=== PATIENT | female | born 1955 | race Caucasian/White ===

== ENCOUNTER 2020-04-05 11:24 | Emergency (ER) | payer OTHER ==
--- NOTE | 2020-04-05 12:34 | ERPHSYRPT ---
- History of Present Illness Patient Subjective Stated Complaint: " I have felt weak all over. My blood pressure and oxygen was low this morning. I have had a cold and I feel short of breath. I had a televisit this morning and they advised I come to hospital. Come of my family was positive for Covid and they stayed at my house a couple weeks ago". Triage Nursing Assessment: Pt presents to ER with complaints of shortness of breath and weakness all over. Pt does have dimished lung sounds throughout and wheezes noted. States has had productive cough and cold for the past couple of days. States feels weak all over. 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 Pt denies headache, dizziness, or pain. Pt denies nausea/vomiting/diarrhea. Pt does states she had "upset stomach" a couple days ago. Pt skin is pale, warm, and dry. Pt is alert and oriented x 3. Pt able to ambulate with slow gait. Pt states recent exposure to Covid-19. Physician History: 65 yo wf w cc of decreased BP and low sats x 1 wk. Pt also complains of DUE. Sats/BP wnl upon presentation. Pt denies chest p ain/fever/cough/N/V/D/Melena/hematochezia/dysuria/hematuria. Timing/Duration: week(s) (1wk) Activities at Onset: none Severity of Dyspnea-Max: mild Severity of Dyspnea-Current: mild Possible Cause: no prior episodes Modifying Factors: Improves With: activity Associated Symptoms: No chest pain/discomfort, No edema, No fever, No insomnia, No loss of appetite, No lightheadedness, No wheezing, No weakness, No ankle swelling, No chills, No hemoptysis, No calf pain, No dizziness, No heaviness, No heart racing, No lightheadedness, No leg swelling, No muscle spasms feet, No muscle spasms hands, No painful breathing, No productive cough, No sweating, No tightness, No tingling face Allergies/Adverse Reactions: No Known Drug Allergies Allergy (Verified 04/05/20 11:42) Home Medications: Nebivolol HCl [Bystolic] 5 mg PO DAILY 05/04/15 [History] Omeprazole 40 mg PO DAILY 05/04/15 [History] Rosuvastatin Calcium [Crestor] 20 mg PO DAILY 05/04/15 [History] Anastrozole [Arimidex] 1 mg PO DAILY 03/30/16 [History] Duloxetine HCl [Cymbalta] 60 mg DAILY 03/30/16 [History] Bumetanide 1 mg PO BID 04/05/20 [History] Cyanocobalamin (Vitamin B-12) [B-12] 1,000 mcg PO DAILY 04/05/20 [History] Losartan Potassium 50 mg [Cozaar 50 MG] 50 mg PO DAILY 04/05/20 [History] Metformin HCl 500 mg PO BID 04/05/20 [History] Vit A/Vit C/Vit E/Zinc/Copper [Preservision Areds Tablet] 2 each PO BID 04/05/20 [History] allopurinoL [Allopurinol] 300 mg PO DAILY 04/05/20 [History] Hx Tetanus, Diphtheria Vaccination/Date Given: Yes Hx Influenza Vaccination/Date Given: Yes Hx Pneumococcal Vaccination/Date Given: Yes Immunizations Up to Date: Yes Travel Risk - International Travel Have you traveled outside of the country in past 3 weeks: No - Coronavirus Screening Are you exhibiting any of the following symptoms?: No Close contact with a COVID-19 positive Pt in past 14-21 Days: Yes - Review of Systems Constitutional: No Symptoms Eyes: No Symptoms Ears, Nose, & Throat: No Symptoms Respiratory: Dyspnea, Dyspnea on Exertion (GILLESPIE), No Cough, No Cyanosis, No Stridor, No Wheezing Cardiac: No Symptoms Abdominal/Gastrointestinal: No Symptoms Musculoskeletal: No Symptoms Skin: No Symptoms Neurological: No Symptoms Psychological: No Symptoms Endocrine: No Symptoms Hematologic/Lymphatic: No Symptoms Immunological/Allergic: No Symptoms - Past Medical History Pertinent Past Medical History: Yes Neurological History: No Pertinent History ENT History: No Pertinent History Cardiac History: Hypertension, Other Respiratory History: Sleep Apnea Endocrine Medical History: No Pertinent History Musculoskeletal History: Degenerative Disk Disease, Osteoarthritis GI Medical History: GERD History: No Pertinent History Psycho-Social History: No Pertinent History Female Reproductive Disorders: Breast Cancer Other Medical History: "leaky" heart valve, breast ca,with lumpectomy 2016, fatty liver - Past Surgical History Past Surgical History: Yes Neuro Surgical History: No Pertinent History Cardiac: Cardiac Catheterization Respiratory: No Pertinent History Gastrointestinal: No Pertinent History Genitourinary: No Pertinent History Musculoskeletal: No Pertinent History Female Surgical History: Tubal Ligation Other Surgical History: breast bx--dx with cancer days ago--has appt with dr mullen today,lumpectomy 2016 - Social History Smoking Status: Never smoker Exposure to second hand smoke: No Drug Use: none Patient Lives Alone: No Significant Family History: no pertinent family hx - Nursing Vital Signs Nursing Vital Signs: Initial Vital Signs Temperature 97.7 F 04/05/20 11:35 Pulse Rate 70 04/05/20 11:35 Respiratory Rate 22 04/05/20 11:35 Blood Pressure 132/78 04/05/20 11:35 O2 Sat by Pulse Oximetry 96 04/05/20 11:35 Pain Scale Pain Intensity 0 - Physical Exam General Appearance: no apparent distress Eye Exam: PERRL/EOMI, eyes nml inspection Ears, Nose, Throat Exam: hearing grossly normal, normal ENT inspection, normal pharynx Neck Exam: normal inspection, non-tender, supple, full range of motion, No Brudzinski, No Kernig's, No meningismus, No carotid bruit Respiratory Exam: crackles/rales (Rales R base) Cardiovascular/Chest Exam: normal heart sounds, murmur (2/6 LA[place]ENCE) Abdominal/Gastrointestinal Exam: soft, normal bowel sounds, No tenderness Extremity Exam: non-tender, normal range of motion, normal inspection Peripheral Pulses Exam: carotid (R): 2+, carotid (L): 2+ Neurologic Exam: alert, oriented x 3, 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, 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, normal mood/affect, nml cerebellar function, sensation nml, No motor deficits, No sensory deficit Skin Exam: normal color, warm, dry, No rash Lymphatic Exam: No adenopathy SpO2 Interpretation: normal SpO2: 96 O2 Delivery: Room Air - Course Nursing assessment & vital signs reviewed: Yes EKG Interpreted by Me: RATE (NSR/R67/Normal QT-QTc/IVCD/Flat Twaves) - CT Exams Chest CT Interpretation: Discussed w/radiologist (CTA chest-patchy B groundglass airspace opacities/L breast mass) Ordered Tests: Active Orders 24 hr Category Date Time Status EKG-ER Only STAT Care 04/05/20 12:07 Completed CHEST WITH CONTRAST [CT] Stat Exams 04/05/20 13:19 Completed CBC W DIFF Stat Lab 04/05/20 12:34 Completed CMP Stat Lab 04/05/20 12:27 Completed D-DIMER QUANTITATIVE Stat Lab 04/05/20 12:27 Completed PROTIME WITH INR Stat Lab 04/05/20 12:27 Completed PTT Stat Lab 04/05/20 12:27 Completed TROPONIN Q3H Lab 04/05/20 12:15 Completed Medication Summary Discontinued Medications Generic Name Dose Route Start Last Admin Trade Name Freq PRN Reason Stop Dose Admin Dexamethasone Sodium Phosphate 10 mg 04/05/20 14:49 04/05/20 14:52 Decadron 10mg Inj. IV 04/05/20 14:50 10 mg STAT ONE Administration Dexamethasone Sodium Phosphate Confirm 04/05/20 14:52 Decadron 10mg Inj. Administered 04/05/20 14:53 Dose 10 mg .ROUTE .STK-MED ONE Sodium Chloride 1,000 mls @ 999 mls/hr 04/05/20 14:31 04/05/20 15:35 Sodium Chloride 0.9% 1000 Ml IV 04/05/20 15:31 Infused .Q1H1M STA Infusion Sodium Chloride Confirm 04/05/20 14:35 Sodium Chloride 0.9% 1000 Ml Administered 04/05/20 14:36 Dose 1,000 mls @ ud .ROUTE .STK-MED ONE Lab/Rad Data: Laboratory Result Diagrams 04/05/20 12:34 04/05/20 12:27 Laboratory Results 04/05/20 04/05/20 04/05/20 Range/Units 12:34 12:27 12:27 WBC 5.7 (4.0-10.5) K/mm3 RBC 4.17 (4.1-5.4) M/mm3 Hgb 13.3 (12.0-16.0) gm/dl Hct 41.1 (35-47) % MCV 98.6 (78-100) fl MCH 31.9 (26-32) pg MCHC 32.4 (32-36) g/dl RDW 12.8 (11.5-14.0) % Plt Count 144 L (150-450) K/mm3 MPV 11.1 H (7.5-11.0) fl Gran % 65.8 (36.0-66.0) % Eos # (Auto) 0.05 (0-0.5) Absolute Lymphs (auto) 1.07 (1.0-4.6) Absolute Monos (auto) 0.82 (0.0-1.3) Lymphocytes % 18.7 L (24.0-44.0) % Monocytes % 14.4 H (0.0-12.0) % Eosinophils % 0.9 (0.00-5.0) % Basophils % 0.2 (0.0-0.4) % Absolute Granulocytes 3.76 (1.4-6.9) Basophils # 0.01 (0-0.4) PT 14.1 H (9.95-12.35) SECONDS INR 1.25 (0.8-3.0) APTT 27.7 (25.3-37.0) SECONDS D-Dimer 676 H* (215-500) ng/mL Sodium 136 L (137-145) mmol/L Potassium 3.7 (3.5-5.1) mmol/L Chloride 97 L (98-107) mmol/L Carbon Dioxide 27 (22-30) mmol/L Anion Gap 15.2 H (5-15) MEQ/L BUN 25 H (7-17) mg/dL Creatinine 1.20 H (0.52-1.04) mg/dL Estimated GFR 48.2 ML/MIN Glucose 139 H (74-106) mg/dL Calcium 8.7 (8.4-10.2) mg/dL Total Bilirubin 0.60 (0.2-1.3) mg/dL AST 72 H (14-36) U/L ALT 49 H (0-35) U/L Alkaline Phosphatase 96 (38-126) U/L Troponin I (0.000-0.034) ng/mL Serum Total Protein 8.1 (6.3-8.2) g/dL Albumin 4.3 (3.5-5.0) g/dL 04/05/20 Range/Units 12:15 WBC (4.0-10.5) K/mm3 RBC (4.1-5.4) M/mm3 Hgb (12.0-16.0) gm/dl Hct (35-47) % MCV (78-100) fl MCH (26-32) pg MCHC (32-36) g/dl RDW (11.5-14.0) % Plt Count (150-450) K/mm3 MPV (7.5-11.0) fl Gran % (36.0-66.0) % Eos # (Auto) (0-0.5) Absolute Lymphs (auto) (1.0-4.6) Absolute Monos (auto) (0.0-1.3) Lymphocytes % (24.0-44.0) % Monocytes % (0.0-12.0) % Eosinophils % (0.00-5.0) % Basophils % (0.0-0.4) % Absolute Granulocytes (1.4-6.9) Basophils # (0-0.4) PT (9.95-12.35) SECONDS INR (0.8-3.0) APTT (25.3-37.0) SECONDS D-Dimer (215-500) ng/mL Sodium (137-145) mmol/L Potassium (3.5-5.1) mmol/L Chloride (98-107) mmol/L Carbon Dioxide (22-30) mmol/L Anion Gap (5-15) MEQ/L BUN (7-17) mg/dL Creatinine (0.52-1.04) mg/dL Estimated GFR ML/MIN Glucose (74-106) mg/dL Calcium (8.4-10.2) mg/dL Total Bilirubin (0.2-1.3) mg/dL AST (14-36) U/L ALT (0-35) U/L Alkaline Phosphatase (38-126) U/L Troponin I < 0.012 (0.000-0.034) ng/mL Serum Total Protein (6.3-8.2) g/dL Albumin (3.5-5.0) g/dL - Progress Progress Note: 04/05/20 14:39 1L NS bolus Pt alerted that she probably has Covid19 and to quarantine x14 days Pt alerted of L breast mass and to f/u with oncologist/breast surgeon. Pt states [id number] follow up and mamogram 3 months ago. Counseled pt/family regarding: lab results, diagnosis, need for follow-up, rad results - Departure Departure Disposition: Home Clinical Impression: COVID-19, Breast mass, left Condition: Stable Critical Care Time: No Referrals: KOLTON RIVAS [Primary Care Provider] - Instructions: Coronavirus Disease 2019 (COVID-19) (DC) Additional Instructions: Monitor your oxygen saturation and return to ER if oxygen saturation is consistently less than 91% Start doxycycline twice a day Return to ER for increasing shortness of breath/chest pain Follow up with your oncologist/breast surgeon about left breast mass Prescriptions: Doxycycline Monohydrate 100 mg PO BID #14 tablet
[2020-04-05 12:45] LABS: Absolute Neutrophil Ct (ANC) 3.76 (1.4-6.9); BASOPHIL % 0.2 % (0.0-0.4); Basophil (Absolute #) 0.01 (0-0.4); Eosinophil % 0.9 % (0.00-5.0); Eosinophil (Absolute #) 0.05 (0-0.5); Hematocrit 41.1 % (35-47); Hemoglobin 13.3 gm/dl (12.0-16.0); Lymphocyte (Absolute #) 1.07 (1.0-4.6); Lymphocytes % 18.7 % (24.0-44.0); Mean Cell Volume 98.6 fl (78-100); Mean Corpuscular Hemoglobin 31.9 pg (26-32); Mean Corpuscular Hgb Concent. 32.4 g/dl (32-36); Mean Platelet Volume 11.1 fl (7.5-11.0); Monocyte (Absolute #) 0.82 (0.0-1.3); Monocytes % 14.4 % (0.0-12.0); Neutrophil % 65.8 % (36.0-66.0); Platelet Count 144 K/mm3 (150-450); Red Blood Count 4.17 M/mm3 (4.1-5.4); Red Cell Distribution Width 12.8 % (11.5-14.0); White Blood Count 5.7 K/mm3 (4.0-10.5)
[2020-04-05 12:48] LABS: INR 1.25 (0.8-3.0); PROTIME 14.1 SECONDS (9.95-12.35)
[2020-04-05 12:51] LABS: PTT 27.7 SECONDS (25.3-37.0)
[2020-04-05 12:54] LABS: ALBUMIN 4.3 g/dL (3.5-5.0); ANION GAP 15.2 MEQ/L (5-15); BILIRUBIN,TOTAL 0.6 mg/dL (0.2-1.3); Calcium 8.7 mg/dL (8.4-10.2); Creatinine 1 1.2 mg/dL (0.52-1.04); EST GLOMERULAR FILTRATION RATE 48.2 ML/MIN; Potassium 3.7 mmol/L (3.5-5.1); Total Protein 8.1 g/dL (6.3-8.2)
--- NOTE | 2020-04-05 14:23 | XRAY ---
Indication: Dyspnea. Elevated d-dimer. History of breast cancer. Multiple contiguous axial images obtained through the chest using 100 cc Isovue 370 contrast and PE protocol. Comparison: CT chest without contrast April 29, 2015. Patient's renal GFR is low, 48. Ordering ER clinician, Dr. Gerardo was made aware of this and requested CT PE exam be performed. There is satisfactory opacification of the pulmonary arteries to include the lobar and segmental branches. No pulmonary embolus. Heart is not enlarged. Aorta is normal in course and caliber. There remains mediastinal lymph nodes, largest distal paratracheal measuring 1.2 x 1.7 cm unchanged. No pathologic hilar lymphadenopathy. Lungs demonstrates several new small patchy groundglass airspace opacities bilaterally. Also new bilateral dependent atelectasis and scattered peripheral fibrosis/scarring. No consolidation or effusion. Bony thorax intact with mild osteopenia and mild degenerative changes throughout the spine. 2.2 x 3.1 cm left breast mass not included in the [id number] on previous exam. Limited upper abdomen again demonstrates mild fatty liver and 13.8 cm splenomegaly. Impression: 1. Negative pulmonary embolus. 2. New diffuse patchy bilateral airspace disease without consolidation/large effusion. 3. Left breast mass presumed known malignancy. 4. Again incidental fatty liver and splenomegaly.
[2020-04-05] MEDS ORDERED: Sodium Chloride 0.9% 1000 ML 1,000 ML IV STA (14:31)
[2020-04-05] MEDS ORDERED: Sodium Chloride 0.9% 1000 ML 1,000 ML ONE (14:35)
[2020-04-05] MEDS ORDERED: DECADRON 10MG INJ. IV ONE (14:49)
[2020-04-05] MEDS ORDERED: DECADRON 10MG INJ. ONE (14:52)
[2020-04-05 15:08] VITALS: BP 105/57; PULSE 71
[2020-04-05 21:06] VITALS: O2SAT 96
== END 2020-04-05 15:51 | disposition home or self-care (01) ==
LOC: ED 11:24
DX: R06.02 Shortness of breath (principal); R53.83 Other fatigue; R05 Cough; Z20.828 Contact with and (suspected) exposure to other viral communicable diseases; Z79.899 Other long term (current) drug therapy; I10 Essential (primary) hypertension; N63.0 Unspecified lump in unspecified breast
CPT/HCPCS: 36415; 71260; 80053; 84484; 85025; 85379; 85610; 85730; 93005; 96360; 96374; 99284; U0003; J1100

== ENCOUNTER 2021-04-25 10:45 | Day surgery (SDC) | payer OTHER ==
[2021-04-25] MEDS ORDERED: Lactated Ringers 1,000 ML IV SCH (11:30)
[2021-04-25] MEDS ORDERED: CEFAZOLIN 2 GM-D5W BAG** 2 GM/50 ML ML IV ONE (11:51)
[2021-04-25] MEDS ORDERED: CEFAZOLIN 2 GM-D5W BAG** 2 GM/50 ML ML IV SCH (12:00)
[2021-04-25] MEDS ORDERED: DIPRIVAN 200 MG/20 ML IV ONE (15:19)
[2021-04-25] MEDS ORDERED: SUBLIMAZE 100 MCG/2 ML ONE ×2 (15:19→15:30)
[2021-04-25] MEDS ORDERED: Versed 2 MG/2 ML Injection ONE (15:20)
[2021-04-25] MEDS ORDERED: TYLENOL EXTRA STRENGTH 500 MG PO PRN (16:41)
[2021-04-25 17:04] VITALS: BP 121/75
[2021-04-25 17:14] VITALS: PULSE 78; O2SAT 97
--- NOTE | 2021-05-05 11:04 | OP ---
PROCEDURE DATE/TIME: 04/25/2021 1517 PREOPERATIVE DIAGNOSIS: Post-menopausal bleeding. POSTOPERATIVE DIAGNOSIS: Post-menopausal bleeding. PROCEDURE: Fractional dilatation and curettage. PROCEDURE PERFORMED BY: Kailee St M.D. ANESTHESIA: General. ESTIMATED BLOOD LOSS: Minimal. COMPLICATIONS: None. SPECIMENS: 1) Endometrial tissue. 2) Endocervical tissue. HISTORY: This is a 66-year-old female who is well known to me. She had a pelvic ultrasound due to postmenopausal bleeding and is here for D&C. She does also have a history of breast cancer in the past. Her ultrasound showed a thickened endometrium. She is on Tamoxifen. However, this report states endometrial cancer, hyperplasia, polyp or even metastasis could be considered. Risks, benefits, alternatives regarding D&C have been discussed with the patient in detail. She also has some benign findings on her ultrasound as well which were discussed with her. Her H&P and consent have been reviewed, completed and confirmed. DESCRIPTION OF PROCEDURE: She was then brought back to the operative suite. Anesthesia induced. She was prepped and draped in the usual sterile fashion in lithotomy position. Complete time out performed. First, I did a bimanual exam. The patient does not have any significant findings on bimanual exam. We then placed weighted speculum. We then placed a retractor clearly identified the cervix. She had a slightly broad cervix. The cervix was then grasped with a single tooth tenaculum and carefully retracted. I took endocervical curettings and these to pathology. We then used the uterine sound to measure the uterus. The uterus is somewhat enlarged for her age and measured approximately 10.5 to 11 cm. I then carefully dilated the uterus to accommodate the curette. We then very thoroughly curetted the entire endometrial lining anteriorly, laterally and posteriorly as we could and I did get more tissue than would expected in someone who is postmenopausal and this is consistent with a thickened stripe. There was no polypoid tissue encountered. All tissue was submitted to pathology and then once we had a good curettage completed, we then insured hemostasis. There is no blood further from the cervix. The tenaculum was removed and there was no blood here. The remainder of her vaginal canal is normal and we completed the procedure. The patient tolerated everything without complication. I have discussed her results with her family in the postoperative area as well as with her as she was waking up and she will be following up with me closely as an outpatient to determine our next step and then based on her pathology, we will determine our plan for hysterectomy.
== END 2021-04-25 17:22 | disposition home or self-care (01) ==
LOC: SDC 10:45
PROVIDERS: ATTEND Surgery
DX: N95.0 Postmenopausal bleeding (principal); Z79.899 Other long term (current) drug therapy
CPT/HCPCS: 82947; 88305; J0690; J2250; J2704; J3010; A9270-GY

== ENCOUNTER 2021-05-23 09:24 | Observation (INO) | payer OTHER ==
[~2021-05-23 09:24] MED LIST: Lactated Ringers 1,000 ML IV ONE; Sensorcaine 0.25% 10 ML ONE
[2021-05-23] MEDS ORDERED: Lactated Ringers 1,000 ML IV SCH (12:30)
[2021-05-23] MEDS ORDERED: Lactated Ringers 1,000 ML IV ONE (12:34)
[2021-05-23] MEDS ORDERED: MEFOXIN 2 GM PREMIX** 2 GM/50 ML ML IV ONE (12:34)
[2021-05-23] MEDS ORDERED: MEFOXIN 2 GM PREMIX** 2 GM/50 ML ML IV SCH (13:00)
[2021-05-23 13:19] LABS: Hematocrit 39.8 % (35-47); Hemoglobin 12.7 gm/dl (12.0-16.0); Mean Cell Volume 101.8 fl (78-100); Mean Corpuscular Hemoglobin 32.5 pg (26-32); Mean Corpuscular Hgb Concent. 31.9 g/dl (32-36); Mean Platelet Volume 10.9 fl (7.5-11.0); Platelet Count 137 K/mm3 (150-450); Red Blood Count 3.91 M/mm3 (4.1-5.4); Red Cell Distribution Width 12.6 % (11.5-14.0); White Blood Count 6.2 K/mm3 (4.0-10.5)
[2021-05-23 13:28] LABS: ALBUMIN 4.2 g/dL (3.5-5.0); ALKALINE PHOSPHATASE 66 U/L (38-126); ANION GAP 12.1 MEQ/L (5-15); BLOOD UREA NITROGEN 15 mg/dL (7-17); CHLORIDE 105 mmol/L (98-107); Calcium 9.1 mg/dL (8.4-10.2); Carbon Dioxide 28 mmol/L (22-30); Creatinine 1 0.55 mg/dL (0.52-1.04); EST GLOMERULAR FILTRATION RATE > 60.0 ML/MIN; Glucose 114 mg/dL (74-106); SGOT/AST 39 U/L (14-36); SGPT/ALT 23 U/L (0-35); SODIUM 141 mmol/L (137-145); Total Protein 7.4 g/dL (6.3-8.2)
[2021-05-23 13:46] LABS: ABO TYPING A; Antibody Screen NEGATIVE (NEGATIVE); RH TYPING POSITIVE
[2021-05-23 14:11] LABS: INFLUENZA A NEGATIVE (NEGATIVE); INFLUENZA B NEGATIVE (NEGATIVE); RESPIRATORY SYNCTIAL VIRUS NEGATIVE (Negative)
[2021-05-23 14:13] LABS: SARS-CoV-2 Xpert Express NEGATIVE (NEGATIVE)
[2021-05-23] MEDS ORDERED: Versed 2 MG/2 ML Injection ONE (15:34)
[2021-05-23] MEDS ORDERED: Zemuron 100 MG/10 ML ONE ×4 (15:34→19:02)
[2021-05-23] MEDS ORDERED: DIPRIVAN 200 MG/20 ML IV ONE (15:34)
[2021-05-23] MEDS ORDERED: Zofran 4 MG/2 ML VIAL ONE (15:34)
[2021-05-23] MEDS ORDERED: TORAdol 30 mg Injection ONE (15:34)
[2021-05-23] MEDS ORDERED: Astramorph-Pf 5 MG/10 ML ONE (15:34)
[2021-05-23] MEDS ORDERED: Xylocaine-Mpf 2% 5 Ml Vial ONE (15:34)
[2021-05-23] MEDS ORDERED: Decadron 4 MG INJ ONE (15:34)
[2021-05-23] MEDS ORDERED: BRIDION 200MG/2ML IV ONE (15:34)
[2021-05-23] MEDS ORDERED: SUBLIMAZE 100 MCG/2 ML ONE ×2 (15:34→19:22)
[2021-05-23] MEDS ORDERED: Zofran 4 MG/2 ML VIAL IVIM PRN (22:29)
[2021-05-23] MEDS ORDERED: NORCO 5/325 MG PO PRN (22:31)
[2021-05-23] MEDS ORDERED: MORPHINE SULFATE 2 MG INJ IV PRN (22:31)
[2021-05-23] MEDS: CEFAZOLIN 2 GM-D5W BAG** 2 GM/50 ML ML IV SCH (23:26)
[2021-05-24] MEDS: CEFAZOLIN 2 GM-D5W BAG** 2 GM/50 ML ML IV SCH ×2 (05:13→14:26)
[2021-05-24 05:58] LABS: Hematocrit 41.2 % (35-47); Hemoglobin 12.5 gm/dl (12.0-16.0); Mean Cell Volume 106.7 fl (78-100); Mean Corpuscular Hemoglobin 32.4 pg (26-32); Mean Corpuscular Hgb Concent. 30.3 g/dl (32-36); Mean Platelet Volume 11.2 fl (7.5-11.0); Platelet Count 150 K/mm3 (150-450); Red Blood Count 3.86 M/mm3 (4.1-5.4); Red Cell Distribution Width 12.7 % (11.5-14.0); White Blood Count 10.6 K/mm3 (4.0-10.5)
[2021-05-24 07:03] LABS: ANION GAP 16.8 MEQ/L (5-15); BLOOD UREA NITROGEN 16 mg/dL (7-17); CHLORIDE 104 mmol/L (98-107); Calcium 8.6 mg/dL (8.4-10.2); Carbon Dioxide 26 mmol/L (22-30); EST GLOMERULAR FILTRATION RATE > 60.0 ML/MIN; Glucose 145 mg/dL (74-106); Potassium 5.1 mmol/L (3.5-5.1); SODIUM 142 mmol/L (137-145)
[2021-05-24] MEDS: Lactated Ringers 1,000 ML IV SCH ×2 (07:05→15:26)
[2021-05-24] MEDS ORDERED: TYLENOL 325 MG PO PRN (07:27)
[2021-05-24] MEDS ORDERED: FEVERALL 650 MG RC PRN (07:27)
[2021-05-24] MEDS ORDERED: NON-FORMULARY ITEM (Mecobalamin [B12 Active] 1,000 MCG Tab.Chew) PO SCH (07:45)
[2021-05-24] MEDS: Carafate 1 GM PO SCH ×2 (08:34→16:23)
[2021-05-24] MEDS: BUMEX 1 MG PO SCH ×2 (09:57→16:39)
[2021-05-24] MEDS ORDERED: Protonix 40MG Tablet PO SCH (10:00)
[2021-05-24] MEDS ORDERED: NON-FORMULARY ITEM (Rosuvastatin Calcium [Crestor] 20 MG Tablet) PO SCH (10:00)
[2021-05-24] MEDS ORDERED: ZYLOPRIM 300 MG PO SCH (10:00)
[2021-05-24] MEDS ORDERED: NON-FORMULARY ITEM (Omeprazole [Omeprazole] 40 MG Capsule.Dr) PO SCH (10:00)
[2021-05-24] MEDS ORDERED: ZOCOR 20MG PO SCH (10:00)
[2021-05-24] MEDS ORDERED: NON-FORMULARY ITEM (Duloxetine Hcl [Cymbalta] 60 MG Capsule.Dr) PO SCH (10:00)
[2021-05-24] MEDS ORDERED: Cozaar 50 MG PO SCH (10:00)
[2021-05-24] MEDS ORDERED: Bystolic 5 MG PO SCH (10:00)
[2021-05-24] MEDS ORDERED: Cymbalta 30 MG Capsule PO SCH (10:00)
[2021-05-24 12:22] VITALS: O2SAT 93
[2021-05-24] MEDS ORDERED: ENOXAPARIN SODIUM SQ SCH (14:00)
[2021-05-24 16:12] VITALS: BP 94/54; PULSE 76
--- NOTE | 2021-05-24 17:49 | PCM.SSS ---
History of Present Illness - Chief Complaint Chief Complaint: POSTMENOPAUSAL BLEEDING History of Present Illness: is a 66 year old female of mine from [facility] with hx breast ca, CAD, hyperlipidemia, gout, HTN, and reactive airway dz who was admitted by Dr. Kailee St after having a laparosopic assisted vaginal hysterectomy. The pt was urged to do so by her oncologist after her breast ca, and the pt had some vaginal bleeding and uterine fibroids. She is POD #1 today and hasn't required any pain meds. Has been up to walk and is tolerating CLD. Passing gas. Urinating. Her BP have been in the 90s-100s systolic. Dr. Favio St is coming to see her today and may opt to send her home this evening. - Review of Systems Genitourinary Symptoms: Vaginal Bleeding All Other Systems: Reviewed and Negative Medications & Allergies Home Medications: Home Medication List Nebivolol HCl [Bystolic] 5 mg PO DAILY 05/04/15 [History Confirmed 05/23/21] Omeprazole 40 mg PO DAILY 05/04/15 [History Confirmed 05/18/21] Rosuvastatin Calcium [Crestor] 20 mg PO DAILY 05/04/15 [History Confirmed 05/18/21] Duloxetine HCl [Cymbalta] 90 mg PO DAILY 03/30/16 [History Confirmed 05/18/21] Bumetanide 1 mg PO BID 04/05/20 [History Confirmed 05/18/21] Losartan Potassium 50 mg [Cozaar 50 MG] 50 mg PO DAILY 04/05/20 [History Confirmed 05/18/21] Metformin HCl 500 mg PO BID 04/05/20 [History Confirmed 05/18/21] allopurinoL [Allopurinol] 300 mg PO DAILY 04/05/20 [History Confirmed 05/18/21] Mecobalamin [B12 Active] 1,000 mcg PO WEEKLY 04/22/21 [History Confirmed 05/18/21] Sucralfate 1 gm [Carafate 1 GM] 1 g PO BID 04/22/21 [History Confirmed 05/18/21] Vit C/E/Zn/Coppr/Lutein/Zeaxan [Preservision Areds 2 Softgel] 1 each PO BID 04/22/21 [History Confirmed 05/18/21] Allergies/Adverse Reactions: Allergies Allergy/AdvReac Type Severity Reaction Status Date / Time No Known Drug Allergies Allergy Verified 05/23/21 12:32 - Past Medical History Past Medical History: Yes Neurological History: No Pertinent History ENT History: No Pertinent History Cardiac History: Hypertension, Other Respiratory History: Sleep Apnea Endocrine Medical History: Diabetes Type II Musculoskelatal History: Degenerative Disk Disease, Osteoarthritis GI Medical History: GERD History: No Pertinent History Pyscho-Social History: No Pertinent History Reproductive Disorders: Breast Cancer Comment: "leaky" heart valve, breast ca,with lumpectomy 2015, fatty liver, bilat mastectomy - Female History Hx Last Menstrual Period: age 54 Are you now?: No - Past Surgical History Past Surgical History: Yes Neuro Surgical History: No Pertinent History Cardiac History: No Pertinent History Respiratory Surgery: No Pertinent History GI Surgical History: No Pertinent History Genitourinary Surgical Hx: No Pertinent History Musculskeletal Surgical Hx: No Pertinent History Female Surgical History: Hysterectomy, Dilation & Curettage, Tubal Ligation, Mastectomy Other Surgical History: breast bx--dx with cancer days ago--has appt with dr st today,lumpectomy 2016, bilateral mastectomy,colonoscopy and EGD - Social History Smoking Status: Never smoker Exposure to second hand smoke: Yes Alcohol: Weekly Drug Use: none Significant Family History: no pertinent family hx - Physical Exam Vital Signs: Vital Signs - 24 hr Temp Pulse Resp BP Pulse Ox 05/24/21 16:00 96.1 F 76 18 94/54 93 L 05/24/21 12:00 96.7 F 67 18 111/55 93 L 05/24/21 08:00 97.1 F 64 20 92/53 94 L 05/24/21 04:00 96.2 F 62 18 122/60 97 05/23/21 23:28 62 16 94/57 94 L 05/23/21 22:30 70 16 98/57 91 L 05/23/21 22:00 73 16 109/61 92 L 05/23/21 21:41 97.5 F 80 16 114/56 92 L 05/23/21 21:30 74 16 106/65 93 L 05/23/21 21:15 97.5 F 80 16 114/56 92 L 05/23/21 21:00 97.5 F 80 16 114/56 92 L General Appearance: no apparent distress, alert (sitting up in chair with supper tray) Neurologic Exam: oriented x 3, cooperative, normal mood/affect Eye Exam: eyes nml inspection Ears, Nose, Throat Exam: moist mucous membranes Neck Exam: normal inspection Respiratory Exam: normal breath sounds, lungs clear, No crackles/rales, No rhonchi, No wheezing Cardiovascular Exam: regular rate/rhythm, normal heart sounds, No murmur Gastrointestinal/Abdomen Exam: soft, normal bowel sounds, other (binder is on, but abd is soft with no distinct tenderness) Extremity Exam: normal inspection, No pedal edema, No swelling Skin Exam: normal color, warm, dry, No rash Wound Assessment: Skin/Wound Assessment Wound/Incision Assessment Start: 05/23/21 22:15 Text: Status: Active Freq: Q4H Protocol: Document 05/24/21 16:00 RN (Rec: 05/24/21 16:04 RN [id number]) Wound/Incision Assessment Abdomen Wound Assessment Shift Assessment Wound Type Puncture Wound Stage Non Pressure Wound Drainage Amount None General Appearance Well Approximated Comment dermabond intact-abdominal binder on Wound Photo Photo Taken No Results - Labs Lab/Micro Results: Lab Results-Last 24 Hours 05/24/21 05/24/21 Range/Units 05:35 05:35 WBC 10.6 H (4.0-10.5) K/mm3 RBC 3.86 L (4.1-5.4) M/mm3 Hgb 12.5 (12.0-16.0) gm/dl Hct 41.2 (35-47) % MCV 106.7 H (78-100) fl MCH 32.4 H (26-32) pg MCHC 30.3 L (32-36) g/dl RDW 12.7 (11.5-14.0) % Plt Count 150 (150-450) K/mm3 MPV 11.2 H (7.5-11.0) fl Sodium 142 (137-145) mmol/L Potassium 5.1 D (3.5-5.1) mmol/L Chloride 104 (98-107) mmol/L Carbon Dioxide 26 (22-30) mmol/L Anion Gap 16.8 H (5-15) MEQ/L BUN 16 (7-17) mg/dL Creatinine 0.60 (0.52-1.04) mg/dL Estimated GFR > 60.0 ML/MIN Glucose 145 H (74-106) mg/dL Calcium 8.6 (8.4-10.2) mg/dL Assessment/Plan (1) Status post hysterectomy Current Visit: Yes Status: Acute Assessment & Plan: POD #1. She looks terrific. If Dr. Favio St opts to send her home, I will discharge her. Otherwise, will continue to observe overnight. Code(s): Z90.710 - ACQUIRED ABSENCE OF BOTH CERVIX AND UTERUS (2) HTN (hypertension) Current Visit: No Status: Acute Qualifiers: Hypertension type: primary hypertension Qualified Code(s): I10 - Essential (primary) hypertension Assessment & Plan: BP meds held today but I anticipate they will need to be restarted in the morning; this is likely related to anesthesia. By all clinical indicators she is doing great and could be discharged. She would need to check her BP tomorrow to decide when to restart her meds. Code(s): I10 - ESSENTIAL (PRIMARY) HYPERTENSION Hospital Summary - Hospital Course Hospital Course: Pt is 66 yo female admitted for hysterectomy, doing great post-operatively and may be discharged to home tonight. Has had some lower BP than normal, presumably due to anesthesia, but has BP cuff at home so can restart her meds when appropriate. F/u with Dr. Kailee St as directed postoperatively and with me as needed. - Vitals & Intake/Output Vital Signs: Vital Signs Temperature 96.1 F 05/24/21 16:00 Pulse Rate 76 05/24/21 16:00 Respiratory Rate 18 05/24/21 16:00 Blood Pressure 94/54 05/24/21 16:00 O2 Sat by Pulse Oximetry 93 L 05/24/21 16:00 Intake & Output: Intake & Output 05/22/21 05/23/21 05/24/21 05/25/21 11:59 11:59 11:59 11:59 Intake Total 830 240 Output Total 1150 200 Balance -320 40 Weight 106.52 kg - Lab Result Diagrams: 05/24/21 05:35 05/24/21 05:35 Lab Results-Last 24 Hrs: Lab Results-Last 24 Hours 05/24/21 05/24/21 Range/Units 05:35 05:35 WBC 10.6 H (4.0-10.5) K/mm3 RBC 3.86 L (4.1-5.4) M/mm3 Hgb 12.5 (12.0-16.0) gm/dl Hct 41.2 (35-47) % MCV 106.7 H (78-100) fl MCH 32.4 H (26-32) pg MCHC 30.3 L (32-36) g/dl RDW 12.7 (11.5-14.0) % Plt Count 150 (150-450) K/mm3 MPV 11.2 H (7.5-11.0) fl Sodium 142 (137-145) mmol/L Potassium 5.1 D (3.5-5.1) mmol/L Chloride 104 (98-107) mmol/L Carbon Dioxide 26 (22-30) mmol/L Anion Gap 16.8 H (5-15) MEQ/L BUN 16 (7-17) mg/dL Creatinine 0.60 (0.52-1.04) mg/dL Estimated GFR > 60.0 ML/MIN Glucose 145 H (74-106) mg/dL Calcium 8.6 (8.4-10.2) mg/dL - Discharge Disposition: Home, Self-Care Condition: Good Prescriptions: Continue Omeprazole 40 mg PO DAILY Nebivolol HCl [Bystolic] 5 mg PO DAILY Rosuvastatin Calcium [Crestor] 20 mg PO DAILY Duloxetine HCl [Cymbalta] 90 mg PO DAILY Losartan Potassium 50 mg [Cozaar 50 MG] 50 mg PO DAILY allopurinoL [Allopurinol] 300 mg PO DAILY Metformin HCl 500 mg PO BID Bumetanide 1 mg PO BID Mecobalamin [B12 Active] 1,000 mcg PO WEEKLY Vit C/E/Zn/Coppr/Lutein/Zeaxan [Preservision Areds 2 Softgel] 1 each PO BID Sucralfate 1 gm [Carafate 1 GM] 1 g PO BID Follow up with: KOLTON TORREZ [Primary Care Provider] -
[2021-05-29] MEDS ORDERED: Vitamin B-12 500 MCG PO SCH (10:00)
== END 2021-05-24 18:38 | disposition home or self-care (01) ==
LOC: EDSTATUS 11:40 → MED SURG 12:12
PROVIDERS: ADMIT Surgery; ATTEND Surgery
DX: N95.0 Postmenopausal bleeding (principal); I10 Essential (primary) hypertension; I25.10 Atherosclerotic heart disease of native coronary artery without angina pectoris; E78.5 Hyperlipidemia, unspecified; E11.9 Type 2 diabetes mellitus without complications; Z85.3 Personal history of malignant neoplasm of breast; Z90.710 Acquired absence of both cervix and uterus; Z79.899 Other long term (current) drug therapy; Z20.828 Contact with and (suspected) exposure to other viral communicable diseases
CPT/HCPCS: 0241U; 36415; 80048; 80053; 85027; 86850; 86900; 86901; G0378; J0690; J0694; J1100; J1650; J1885; J2250; J2274; J2405; J2704; J3010; L0625; A9270-GY

== ENCOUNTER 2024-07-21 08:37 | Day surgery (SDC) | payer MEDICARE, OTHER ==
[2024-07-21] MEDS: Lactated Ringers 1,000 ML IV SCH (08:52)
[2024-07-21 08:54] VITALS: RESP 18
[2024-07-21] MEDS ORDERED: propofoL IV ONE ×5 (11:06→12:20)
[2024-07-21] MEDS ORDERED: GlucaGen 1 MG ONE (11:59)
[2024-07-21] MEDS ORDERED: Lactated Ringers 1,000 ML IV ONE (12:30)
[2024-07-21 12:54] VITALS: TEMP 97.4; O2SAT 99
[2024-07-21 13:11] VITALS: BP 139/73; PULSE 57
--- NOTE | 2024-07-25 12:00 | OP ---
SURGERY DATE/TIME: 07/21/2024 [id number] PREOPERATIVE DIAGNOSES: 1) Reflux. 2) Screening/surveillance. 3) History of polyps. POSTOPERATIVE DIAGNOSES: 1) Small hiatal hernia. 2) Reflux esophagitis. 3) Gastritis. 4) Colon polyps. 5) Hemorrhoid disease. 6) Benign-appearing right buttock lipoma. PROCEDURE: 1) Esophagogastroduodenoscopy. 2) Colonoscopy. SURGEON: Kailee St MD ANESTHESIA: MAC. INDICATIONS: This is a patient who presents for both EGD and colonoscopy. Her H and P and consent have been reviewed with her preoperatively. All questions answered. Consent has been obtained and she would like to proceed. DESCRIPTION OF PROCEDURE AND FINDINGS: She was then brought back to the endoscopy suite, laid in the left lateral decubitus position. A complete time-out was performed. The scope was gently down into the mouth, oropharynx down into the esophagus, splenic, and duodenum to approximately the second portion of the duodenum. The duodenum was normal. Back in the stomach, she did have some mild gastritis. This was mainly in the antrum and the body in a patchy fashion with some erythema that was mild. I took biopsies in both the antrum and the body and sent these to pathology with cold forceps. These sites were hemostatic. On retroflex view, she does have a small hiatal hernia. There were no other findings of concern in the stomach. We un-retroflexed. We had good hemostasis. We carefully withdrew the scope back into the GE junction. We revisualized the small hiatal hernia. The GE junction is at approximately 38 cm. She did have a 1 cm total length of very mild irregularity but she did have 2 tongues and 1 small island and so I did take targeted biopsies here to rule out early Roman disease. This was with the cold forceps. Everything was nicely hemostatic and then I carefully withdrew the scope completely. The claimant did not have any stricture or mass of concern. No other concerning findings and so, at this point, we then repositioned the patient for a colonoscopy. First, a rectal inspection was done. During this, I did note a very small, approximate 1 cm right upper buttock lipomatous lesion under the skin surface. This is very likely benign. We then did a rectal inspection and exam. She does have a left anterior hemorrhoid and bilateral enlarged posterior hemorrhoid columns that are all moderately enlarged, and she does have a small posterior right internal hemorrhoid that is noted. I did not feel any other masses of concern. This all feels like benign hemorrhoid-related disease. The scope was then inserted and gently advanced to the level of the cecum. Overall, the prep was satisfactory. The cecum was confirmed by visualizing the ileocecal valve and the appendiceal orifice. We then carefully withdrew the scope, taking a circumferential look. She did have some liquid stool throughout the colon that I did irrigate and suction. She did also have multiple polyps. The polyps were taken out as follows: Proximal ascending colon polyp approximately 5 to 6 mm which was semi-sessile, taken in entirety with a cold snare and a clip was placed to prevent postpolypectomy bleeding. She also had another sessile, ascending colon polyp, taken with a cold snare. There were 2 transverse colon polyps, which were small, taken with cold snare each, and then there was a sessile distal transverse colon polyp, also small, taken with a cold snare. There were 2 splenic flexure polyps that were diminutive, 1 to 2 mm, semi-sessile, both taken with cold forceps; and there was a splenic flexure polyp that we labeled splenic flexure jar #2, which was a small polyp in the splenic flexure that was semi-sessile, taken with cold snare; and then there was a rectal polyp that was small, about 3 to 4 mm, semi-pedunculated, taken with a cold snare. After all polyps were removed, we surveyed the sites very carefully. All sites were hemostatic. All polyps were removed in entirety. All polyps were retrieved, and everything was sent as listed to pathology. Once this was complete, the scope was fully removed. The patient tolerated the procedure very well. There were no immediate complications. I have discussed all of her findings and initial instructions with her family. Based on the findings, we have also talked about her medications and anti-reflux diet and lifestyle, fiber, well-balanced diet, water intake, and strategies for her hemorrhoid disease. I do not expect her to need hemorrhoid surgery in the immediate future, and I will further discuss her findings with her as well as her final pathology report at our next office visit. Tentatively, due to the number of polyps identified, we will plan to do her colonoscopy in 3 years and we will base her repeat EGD on her final pathology result and symptoms.
== END 2024-07-21 13:14 | disposition home or self-care (01) ==
LOC: SDC 08:37
PROVIDERS: ATTEND Surgery
DX: Z12.11 Encounter for screening for malignant neoplasm of colon (principal); K21.9 Gastro-esophageal reflux disease without esophagitis; Z09 Encounter for follow-up examination after completed treatment for conditions other than malignant neoplasm; Z86.0100 Personal history of colon polyps, unspecified; K44.9 Diaphragmatic hernia without obstruction or gangrene; K21.00 Gastro-esophageal reflux disease with esophagitis, without bleeding; K29.70 Gastritis, unspecified, without bleeding; D17.1 Benign lipomatous neoplasm of skin and subcutaneous tissue of trunk; K64.8 Other hemorrhoids; D12.2 Benign neoplasm of ascending colon; D12.3 Benign neoplasm of transverse colon
CPT/HCPCS: J1610; J2704